=== PATIENT | female | born 1995 | race Caucasian/White ===

== ENCOUNTER → 2018-03-27 | Outpatient (CLI) | payer OTHER ==
[~2018-03-27] MED LIST: ALBU90OI INH; ALBU90OI6 INH; AMOX500 PO; FLUSAL1005 IH; HYDACE5 PO; HYOS.125 SL; IBUP600 PO; LEVSOD100 PO; LEVSOD150 PO; Omeprazole20 M1 PO; PENVK500 PO; Prednisone20 MG PO; Prednisone50 MG PO; UNITHROID PO
== END | disposition home or self-care (01) ==
LOC: LAB SHORT 09:30 → LAB 09:30
DX: J02.9 Acute pharyngitis, unspecified (principal)
CPT/HCPCS: 87081

== ENCOUNTER 2019-01-14 14:20 | Emergency (ER) | payer OTHER ==
[~2019-01-14] VITALS: Ht 152.4 cm; Wt 108.4 kg
[2019-01-14] MEDS ORDERED: Amoxicillin500 MG PO (14:45)
== END 2019-01-14 14:47 | disposition home or self-care (01) ==
LOC: ER 14:20
DX: J03.90 Acute tonsillitis, unspecified (principal); E03.9 Hypothyroidism, unspecified; K21.9 Gastro-esophageal reflux disease without esophagitis; J45.909 Unspecified asthma, uncomplicated; Z79.899 Other long term (current) drug therapy
CPT/HCPCS: 99282

== ENCOUNTER → 2021-06-30 | Outpatient (CLI) | payer OTHER ==
[~2021-06-30] MED LIST changes: +Amoxicillin500 MG PO
== END | disposition home or self-care (01) ==
LOC: LAB SHORT 13:50
DX: R35.0 Frequency of micturition (principal)
CPT/HCPCS: 87086

== ENCOUNTER → 2021-12-22 | Outpatient (CLI) | payer OTHER | END | disposition home or self-care (01) | LOC: LAB SHORT 09:53 → LAB 09:53 | DX: J02.9 Acute pharyngitis, unspecified (principal) | CPT/HCPCS: 87081 ==

== ENCOUNTER → 2024-02-29 | Outpatient (CLI) | payer OTHER | LOC: LAB SHORT 07:55 → LAB 07:55 | DX: E06.3 Autoimmune thyroiditis (principal); E66.9 Obesity, unspecified; L85.3 Xerosis cutis; R53.83 Other fatigue | CPT/HCPCS: 85651 ==